=== PATIENT | female | born 1990 | race Caucasian/White ===

== ENCOUNTER 2016-12-10 22:02 | Inpatient (IN) | payer SELFPAY ==
--- NOTE | 2016-12-10 22:19 | EDPHY ---
H & P Time Seen by Provider: 12/10/16 22:12 HPI/ROS: HPI Diabetes, vomiting, urinary complaints, sore throat. 26-year-old female. Type 1 diabetic. Reports that 2 days ago she started feeling chills as well as having some shortness of breath and feeling fatigued that was much more noticeable with any exertion. Today she reports onset of nausea with 3-4 episodes of nonbilious, nonbloody vomiting. No diarrhea. She continues to have chills. She also states that she has had dysuria with suprapubic discomfort and some left lower abdominal discomfort which she describes as crampy and achy and coming on in waves. ROS: Constitutional: No fever, as above. Eyes: No discharge. No changes in vision. ENT: As above. No nasal congestion or rhinorrhea. Respiratory: No cough. No shortness of breath. Cardiac: No chest pain, no palpitations. Gastrointestinal: As above, no diarrhea. Genitourinary: No hematuria. As above. Musculoskeletal: No back pain. No neck pain. No myalgias or arthralgias. Skin: No rashes. Neurological: No headache. No focal weakness or altered sensation. Past medical history: Type 1 diabetes. Social history: Physical Exam: General Appearance: Alert, no distress. This patient is responding to questions appropriately and in full sentences. This patient appears well- hydrated and well-nourished. Eyes: Pupils equal and round no pallor or injection. No lid edema, erythema or injection. ENT, Mouth: Mucous membranes are dry. Pharyngeal erythema present. No edema or swelling. No asymmetry suggestive of abscess. No exudates. Respiratory: There are no retractions, lungs are clear to auscultation with good air movement bilaterally. Cardiovascular: Regular rate and rhythm. No murmur. Gastrointestinal: Abdomen is soft with mild and vague suprapubic and left a lower quadrant tenderness on palpation, no masses, bowel sounds normal. No focal tenderness at McBurney's point. No Ybarra sign. Neurological: Motor sensory function is grossly intact. Cranial nerves are normal. Gait is normal. Skin: Warm and dry, no rashes. Musculoskeletal: Neck is supple and nontender. No cervical or submental submandibular lymphadenopathy. Extremities are symmetrical. All joints range without pain or impingement. Psychiatric: No agitation. No depression. Database: EKG: Imaging: Pelvic ultrasound: Normal. Results were discussed with staff radiologist Dr. Michelle. Procedures: Emergency department course: IV placed. She was placed on a monitor. She was started on IV normal saline with 2 L to be given over the next 1-2 hours. She was initially given 4 mg of IV Zofran, 20 mg of IV Pepcid and 0.25 mg of IV hydromorphone. Vital signs reviewed. She was mildly tachycardic in triage. Blood pressure normal. Temperature 37.1degrees. On my evaluation initially, narrow complex sinus rhythm ventricular rate of 85. 11:14 p.m., patient re-evaluated. Serum bicarbonate is 9. IM gap 26. Blood sugar 91. Sepsis declared at this time based on SIRS criteria +infection. She reports she administered 10 units of regular insulin at 8:00 p.m.. She tells me she eats a paleo diet. Acidosis is probably mixed metabolic. Patient given 40 mEq of oral potassium. IV fluids switched to D5 normal saline for 2 L. She was started on an insulin drip at 5 units/hour a regular insulin. Urinalysis indicates infection. She was given 1 g of IV Rocephin. 11:45 p.m., discussed case with hospitalist. Dr. Quintana accepts this patient for admission. She will see the patient in the emergency department now. Patient's remaining emergency department course under my care uneventful. Patient was admitted to the ICU in stable and improved condition. Differential Diagnosis: The differential diagnosis on this patient includes but is not limited to streptococcal pharyngitis, viral syndrome, influenza, dehydration, left ovarian cyst, starvation ketoacidosis, urinary tract infection, DKA. This represents a partial list of diagnoses considered. These considerations are based on history , physical exam, past history, reassessment and diagnostic testing. Constitutional: Initial Vital Signs Temperature (C) 37.1 C 12/10/16 22:05 Heart Rate 105 H 12/10/16 22:05 Respiratory Rate 22 H 12/10/16 22:05 Blood Pressure 118/80 12/10/16 22:05 O2 Sat (%) 100 12/10/16 22:05 O2 Delivery Mode Room Air Allergies/Adverse Reactions: No Known Allergies Allergy (Unverified 12/10/16 22:25) Home Medications: Medication Instructions Recorded Insulin Lispro [Humalog] 12/10/16 Medical Decision Making - Data Points Laboratory Results: Laboratory Results 12/10/16 22:10 12/10/16 22:10 12/10/16 12/10/16 12/10/16 22:40 22:40 22:20 WBC RBC Hgb Hct MCV MCH MCHC RDW Plt Count MPV Neut % (Auto) Lymph % (Auto) [place] % (Auto) Eos % (Auto) Baso % (Auto) Nucleat RBC Rel Count Absolute Neuts (auto) Absolute Lymphs (auto) Absolute Monos (auto) Absolute Eos (auto) Absolute Basos (auto) Absolute Nucleated RBC Immature Gran % Immature Gran # VBG Lactic Acid Sodium Potassium Chloride Carbon Dioxide Anion Gap BUN Creatinine Estimated GFR Glucose Calcium Phosphorus Magnesium Total Bilirubin Conjugated Bilirubin Unconjugated Bilirubin AST ALT Alkaline Phosphatase Total Protein Albumin Lipase Beta-Hydroxybutyrate Beta HCG, Qual Urine Color YELLOW Urine Appearance HAZY Urine pH 5.0 (5.0-7.5) Ur Specific [place] 1.017 (1.002-1.030) Urine Protein 2+ H (NEGATIVE) Urine Ketones 2+ H (NEGATIVE) Urine Blood NEGATIVE (NEGATIVE) Urine Nitrate NEGATIVE (NEGATIVE) Urine Bilirubin NEGATIVE (NEGATIVE) Urine Urobilinogen NEGATIVE EU EU (0.2-1.0) Ur Leukocyte Esterase 2+ H (NEGATIVE) Urine RBC 5-10 /hpf H /hpf (0-3) Urine WBC 5-10 /hpf H /hpf (0-3) Ur Epithelial Cells TRACE /lpf /lpf (NONE-1+) Granular Casts 15-25 /lpf H /lpf (0-1) Urine Mucus TRACE /lpf /lpf (NONE-1+) Ur Culture Indicated? INDICATED H (NI) Urine Glucose 2+ H (NEGATIVE) Influenza Typ A,B (DFA) NEGATIVE FOR FLU (NEGATIVE) Group A Strep Screen NEGATIVE (NEGATIVE) 12/10/16 12/10/16 12/10/16 22:10 22:10 22:10 WBC 12.65 10^3/uL H 10^3/uL (3.80-9.50) RBC 5.35 10^6/uL H 10^6/uL (4.18-5.33) Hgb 14.6 g/dL g/dL (12.6-16.3) Hct 46.2 % % (38.0-47.0) MCV 86.4 fL fL (81.5-99.8) MCH 27.3 pg L pg (27.9-34.1) MCHC 31.6 g/dL L g/dL (32.4-36.7) RDW 13.8 % % (11.5-15.2) Plt Count 393 10^3/uL 10^3/uL (150-400) MPV 9.6 fL fL (8.7-11.7) Neut % (Auto) 64.4 % % (39.3-74.2) Lymph % (Auto) 25.3 % % (15.0-45.0) [place] % (Auto) 8.6 % % (4.5-13.0) Eos % (Auto) 0.2 % L % (0.6-7.6) Baso % (Auto) 0.7 % % (0.3-1.7) Nucleat RBC Rel Count 0.0 % % (0.0-0.2) Absolute Neuts (auto) 8.15 10^3/uL H 10^3/uL (1.70-6.50) Absolute Lymphs (auto) 3.20 10^3/uL H 10^3/uL (1.00-3.00) Absolute Monos (auto) 1.09 10^3/uL H 10^3/uL (0.30-0.80) Absolute Eos (auto) 0.02 10^3/uL L 10^3/uL (0.03-0.40) Absolute Basos (auto) 0.09 10^3/uL 10^3/uL (0.02-0.10) Absolute Nucleated RBC 0.00 10^3/uL 10^3/uL (0-0.01) Immature Gran % 0.8 % % (0.0-1.1) Immature Gran # 0.10 10^3/uL 10^3/uL (0.00-0.10) VBG Lactic Acid Sodium 143 mEq/L mEq/L (134-144) Potassium 3.8 mEq/L mEq/L (3.5-5.2) Chloride 108 mEq/L mEq/L (97-110) Carbon Dioxide 9 mEq/l L* mEq/l (22-31) Anion Gap 26 mEq/L H mEq/L (8-16) BUN 8 mg/dL mg/dL (7-23) Creatinine 0.7 mg/dL mg/dL (0.6-1.0) Estimated GFR > 60 Glucose 91 mg/dL mg/dL (70-100) Calcium 10.1 mg/dL mg/dL (8.5-10.4) Phosphorus Magnesium Total Bilirubin 0.8 mg/dL mg/dL (0.1-1.4) Conjugated Bilirubin 0.5 mg/dL mg/dL (0.0-0.5) Unconjugated Bilirubin 0.3 mg/dL mg/dL (0.0-1.1) AST 41 IU/L IU/L (14-46) ALT 54 IU/L H IU/L (9-52) Alkaline Phosphatase 125 IU/L IU/L (38-126) Total Protein 8.8 g/dL H g/dL (6.3-8.2) Albumin 5.3 g/dL H g/dL (3.5-5.0) Lipase 59.0 IU/L IU/L (23-300) Beta-Hydroxybutyrate Beta HCG, Qual NEGATIVE Urine Color Urine Appearance Urine pH Ur Specific [place] Urine Protein Urine Ketones Urine Blood Urine Nitrate Urine Bilirubin Urine Urobilinogen Ur Leukocyte Esterase Urine RBC Urine WBC Ur Epithelial Cells Granular Casts Urine Mucus Ur Culture Indicated? Urine Glucose Influenza Typ A,B (DFA) Group A Strep Screen 12/10/16 12/10/16 22:10 22:00 WBC RBC Hgb Hct MCV MCH MCHC RDW Plt Count MPV Neut % (Auto) Lymph % (Auto) [place] % (Auto) Eos % (Auto) Baso % (Auto) Nucleat RBC Rel Count Absolute Neuts (auto) Absolute Lymphs (auto) Absolute Monos (auto) Absolute Eos (auto) Absolute Basos (auto) Absolute Nucleated RBC Immature Gran % Immature Gran # VBG Lactic Acid 2.0 mmol/L mmol/L (0.7-2.1) Sodium Potassium Chloride Carbon Dioxide Anion Gap BUN Creatinine Estimated GFR Glucose Calcium Phosphorus 3.0 mg/dL mg/dL (2.5-4.5) Magnesium 2.3 mg/dL mg/dL (1.6-2.3) Total Bilirubin 0.8 mg/dL mg/dL (0.1-1.4) Conjugated Bilirubin Unconjugated Bilirubin AST ALT Alkaline Phosphatase Total Protein Albumin Lipase Beta-Hydroxybutyrate Pending Beta HCG, Qual Urine Color Urine Appearance Urine pH Ur Specific [place] Urine Protein Urine Ketones Urine Blood Urine Nitrate Urine Bilirubin Urine Urobilinogen Ur Leukocyte Esterase Urine RBC Urine WBC Ur Epithelial Cells Granular Casts Urine Mucus Ur Culture Indicated? Urine Glucose Influenza Typ A,B (DFA) Group A Strep Screen Medications Given: Discontinued Medications Hydromorphone HCl (Dilaudid) 0.25 mg IVP EDNOW ONE Stop: 12/10/16 22:40 Last Admin: 12/10/16 22:49 Dose: 0.25 mg Hydromorphone HCl (Dilaudid) 0.25 mg IVP ONCE ONE Stop: 12/11/16 00:02 Last Admin: 12/11/16 00:03 Dose: 0.25 mg Sodium Chloride (Ns) 1,000 mls @ 0 mls/hr IV ONCE ONE PRN Reason: Wide Open Stop: 12/10/16 22:31 Last Admin: 12/10/16 22:32 Dose: 1,000 mls Sodium Chloride (Ns) 1,000 mls @ 0 mls/hr IV ONCE ONE PRN Reason: Wide Open Stop: 12/10/16 22:31 Last Admin: 12/10/16 22:20 Dose: 1,000 mls Famotidine/Sodium Chloride (Pepcid 20 Mg (Premix)) 50 mls @ 200 mls/hr IV EDNOW ONE Stop: 12/10/16 22:53 Last Admin: 12/10/16 22:50 Dose: 50 mls Ceftriaxone Sodium/Dextrose (Rocephin 1 Gm (Premix)) 50 mls @ 100 mls/hr IV EDNOW ONE PRN Reason: Protocol Stop: 12/10/16 23:42 Last Admin: 12/10/16 23:15 Dose: 50 mls Dextrose/Sodium Chloride (D5w Ns) 2,000 mls @ 0 mls/hr IV BOLUS ONE PRN Reason: Wide Open Stop: 12/10/16 23:15 Last Admin: 12/10/16 23:17 Dose: 2,000 mls Ondansetron HCl (Zofran) 4 mg IVP EDNOW ONE Stop: 12/10/16 22:31 Last Admin: 12/10/16 22:43 Dose: Not Given Potassium Chloride (Klor-Con) 40 meq PO EDNOW ONE Stop: 12/10/16 23:11 Last Admin: 12/10/16 23:10 Dose: 40 meq Departure - Departure Disposition: [facility] Inpatient Acute Clinical Impression: Vomiting, History of diabetes mellitus, type I, Diabetic ketoacidosis, Sepsis, Urinary tract infection, Dehydration
[2016-12-10] MEDS ORDERED: NS 1,000 ML IV ONE ×2 (22:30)
[2016-12-10] MEDS ORDERED: ONDANSETRON 4 MG/2 ML VIAL IVP ONE (22:30)
[2016-12-10] MEDS ORDERED: HYDROmorphONE/DILAUDID 1 MG/ML SYR IVP ONE (22:39)
[2016-12-10] MEDS ORDERED: FAMOTIDINE 20 MG/NACL 50 ML IV ONE (22:39)
[2016-12-10 22:40] LABS: % IMMATURE GRANULYOCYTES 0.8 % (0.0-1.1); ADD DIFF? NO; ADD MORPH? NO; ADD SCAN? NO; ATYPICAL LYMPHOCYTE FLAG 0 (0-99); FRAGMENT RBC FLAG 0 (0-99); HEMATOCRIT 46.2 % (38.0-47.0); HEMOGLOBIN 14.6 g/dL (12.6-16.3); LEFT SHIFT FLG 10 (0-99); LIPEMIA HEMOLYSIS FLAG 80 (0-99); MEAN CELL HEMOGLOBIN 27.3 pg (27.9-34.1); MEAN CELL HEMOGLOBIN CONCENTR. 31.6 g/dL (32.4-36.7); MEAN CELL VOLUME 86.4 fL (81.5-99.8); MEAN PLATELET VOLUME 9.6 fL (8.7-11.7); PLATELET CLUMPS FLAG 0 (0-99); PLATELET COUNT 393 10^3/uL (150-400); RED BLOOD CELL COUNT 5.35 10^6/uL (4.18-5.33); RED CELL DISTRIBUTION WIDTH 13.8 % (11.5-15.2)
[2016-12-10 22:51] LABS: ALANINE AMINOTRANSFERASE 54 IU/L (9-52); ALBUMIN 5.3 g/dL (3.5-5.0); ALKALINE PHOSPHATASE 125 IU/L (38-126); ANION GAP 26 mEq/L (8-16); ASPARTATE AMINOTRANSFERASE 41 IU/L (14-46); BILIRUBIN,TOTAL 0.8 mg/dL (0.1-1.4); BILIRUBIN-CONJUGATED 0.5 mg/dL (0.0-0.5); BILIRUBIN-UNCONJUGATED 0.3 mg/dL (0.0-1.1); CALCIUM 10.1 mg/dL (8.5-10.4); CHLORIDE 108 mEq/L (97-110); CREATININE 0.7 mg/dL (0.6-1.0); GLOMERULAR FILTRATION RATE > 60; GLUCOSE 91 mg/dL (70-100); POTASSIUM 3.8 mEq/L (3.5-5.2); SODIUM 143 mEq/L (134-144); TOTAL PROTEIN 8.8 g/dL (6.3-8.2)
[2016-12-10 22:55] LABS: CARBON DIOXIDE 9 mEq/l (22-31)
[2016-12-10 22:56] LABS: COLOR YELLOW; LEUKOCYTE ESTERASE,URINE 2+ (NEGATIVE); NITRITE,URINE NEGATIVE (NEGATIVE)
[2016-12-10] MEDS ORDERED: INSULIN REGULAR HUMAN 100 UNIT, COSIGN. REQUIRED 1 EA in NS 100 ML IV ONE (23:00)
[2016-12-10 23:09] LABS: GRANULAR CASTS 15-25 /lpf (0-1); MUCUS TRACE /lpf (NONE-1+)
[2016-12-10] MEDS ORDERED: POTASSIUM CL 20 MEQ TAB PO ONE (23:10)
[2016-12-10] MEDS ORDERED: D5W NS IV ONE (23:14)
[2016-12-10] MEDS ORDERED: HYDROmorphONE/DILAUDID 1 MG/ML SYR ONE (23:49)
[2016-12-10 23:54] LABS: BILIRUBIN,TOTAL 0.8 mg/dL (0.1-1.4); MAGNESIUM 2.3 mg/dL (1.6-2.3)
[2016-12-11] MEDS ORDERED: HYDROmorphONE/DILAUDID 1 MG/ML SYR IVP ONE (00:01)
[2016-12-11] MEDS ORDERED: D5W NS 1,000 ML IV SCH ×2 (00:30→04:45)
[2016-12-11] MEDS ORDERED: ONDANSETRON 4 MG/2 ML VIAL IVP PRN (00:31)
[2016-12-11] MEDS ORDERED: OXYCODONE/APAP 5/325 TAB PO PRN (00:31)
[2016-12-11] MEDS ORDERED: ONDANSETRON DISINTEGRATING 4 MG TAB PO PRN (00:31)
[2016-12-11] MEDS ORDERED: ACETAMINOPHEN 325 MG TAB PO PRN (00:31)
[2016-12-11] MEDS ORDERED: NS 1,000 ML IV SCH (01:15)
--- NOTE | 2016-12-11 01:30 | GHP ---
DATE OF ADMISSION: 12/10/2016 CHIEF COMPLAINT: Fevers and chills. HISTORY OF PRESENT ILLNESS: A 26-year-old female with known type 1 diabetes who uses Humalog insuli n in the outpatient setting, who presents with 1 week of dysuria, followed by 3 days of subjective f erasmo, chills, nausea, difficulty tolerating p.o. fluids, and fatigue. The patient reports having r ecently moved from [place] without well established medical care or support systems. Reports iris t she was experiencing dysuria for approximately a week prior to her presentation, having not ever e xperienced urinary tract infection before, did not present for assessment. The patient reports that then in the last 72 hours, she has developed fevers and chills, underlying nausea, near-complete in ability to tolerate either food or fluids, but has continued to use her insulin as needed. The ranjeet ent reports 1 preceding episode of DKA that was secondary to medication compliance. Reports some so re throat and shortness of breath. Denies cough. Is experiencing some headache in the emergency de partment. Denies vision changes. Denies diarrhea. Denies lower extremity edema or any new rashes. Patient noted hyperglycemia in the outpatient setting and took 10 units of Humalog insulin prior to presenting to the emergency department. PAST MEDICAL HISTORY: Type 1 diabetes. SOCIAL HISTORY: Negative for illicit drugs. Denies tobacco and alcohol use. Reports she intends t o permanently move from [place] to [place] and establish medical care here. ADVANCED DIRECTIVES: She is full cor, full tube. REVIEW OF SYSTEMS: A 10-point review of systems is negative with the exception of that reported in the HPI. PHYSICAL EXAMINATION: VITAL SIGNS: Blood pressure 109/68, heart rate 105, respiratory rate 22, sat urating 100% on room air, 37.1. GENERAL: This is a thin-appearing young female who looks uncomfort able. HEENT: Notable for very dry mucous membranes. Eyes: Negative for any icterus. CARDIAC: T he patient is tachycardic. PULMONARY: Good respiratory effort. Clear to auscultation bilaterally. No rales, rhonchi, or wheezing. GASTROINTESTINAL: The patient is thin, has positive bowel sounds . ABDOMEN: Tender to palpation in the left lower quadrant, but is soft. The patient has no reboun d or guarding. MUSCULOSKELETAL: Negative for any lower extremity edema. SKIN: Negative for any r ashes. NEUROLOGIC: She is alert and oriented x3. PSYCHIATRIC: She is pleasant and cooperative on interview and examination. DATA: White count is 12.6, hematocrit 46.2, platelets of 393. Bicarb of 9. Anion gap of 26. Crea tinine is 0.7. Glucose of 91. Urinalysis shows 5-10 white blood cells, 15-25 granular casts, 2+ glucose, 2+ ketones. She is negat mil[place] for the flu. Negative for group A strep screening. The patient is refusing chest x-ray. Telem etry, which I personally reviewed and interpreted, shows sinus tachycardia. ASSESSMENT AND PLAN: 1. This is a 26-year-old female, presenting with diabetic ketoacidosis. The patient's admission bl ood glucose is low. I suspect this is likely related to the insulin she self-administered prior to presentation. Based on her history, I suspect that her trigger was a smoldering urinary tract infec tion which led to hyperglycemia and ultimately diabetic ketoacidosis. She has anion gap and acidosi s with ketones in the urine consistent. Will aggressively fluid resuscitate and place carefully on diabetic ketoacidosis protocol on insulin drip monitoring for hypoglycemia. Will carefully follow e lectrolytes overnight. 2. Suspected urinary tract infection based on symptoms, leukocytosis, and abnormal urinalysis. Yoshi curtis empirically treat with ceftriaxone, send urine for culture. Blood cultures have been obtained in the emergency department. 3. Anion gap metabolic acidosis, presumed secondary to diabetic ketoacidosis. Beta hydroxybutyrate is pending. Will aggressively fluid resuscitate and treat with insulin. 4. Leukocytosis. The patient's 2 localizing symptoms are dysuria and shortness of breath. Her shanti g exam is entirely normal. Patient is refusing a chest x-ray. My suspicion for pneumonia is low. Again, will treat empirically for urinary tract infection and send the urine for culture. Can follo w and contour antibiotics accordingly. 5. Type 1 diabetes. Patient uses Humalog alone. Would benefit from outpatient endocrinology. Yoshi acevedo transition off the diabetic ketoacidosis protocol onto a long-acting insulin to assist for improve d glycemic control. Will send a hemoglobin A1c. 6. Prophylaxis with Lovenox. 7. Diet: Diabetic. 8. Disposition: I expect greater than 2 midnights as the patient is presenting with severe acidosi s and diabetic ketoacidosis. 9. Discussed the case with the emergency room physician. Patient will be triaged to the medical-kimble rgical floor for care. /[id number]/MODL
[2016-12-11 01:36] LABS: B-HYDROXYBUTYRATE 6.92 mmol/L (0.02-0.27)
[2016-12-11 01:55] LABS: PHENCYCLIDINE URINE BCH < 6 ng/ml (NEGATIVE); PHENCYCLIDINE URINE BCH NEGATIVE (NEGATIVE); TETRAHYDROCANNABINOL URINE < 5 ng/mL (NEGATIVE); TETRAHYDROCANNABINOL URINE NEGATIVE (NEGATIVE)
[2016-12-11] MEDS ORDERED: INSULIN REGULAR HUMAN 100 UNIT in NS 100 ML IV SCH ×2 (02:00→04:00)
[2016-12-11 02:23] LABS: ANION GAP 13 mEq/L (8-16); CALCIUM 7.5 mg/dL (8.5-10.4); CARBON DIOXIDE 15 mEq/l (22-31); CHLORIDE 114 mEq/L (97-110); CREATININE 0.5 mg/dL (0.6-1.0); GLOMERULAR FILTRATION RATE > 60; GLUCOSE 244 mg/dL (70-100); MAGNESIUM 1.7 mg/dL (1.6-2.3); SODIUM 142 mEq/L (134-144)
[2016-12-11] MEDS ORDERED: PROTOCOL POTASSIUM 1 DOSE MISC PRN ×2 (02:57)
[2016-12-11 03:25] LABS: HEMOGLOBIN A1C 11.8 % (4.0-6.0)
[2016-12-11] MEDS: POTASSIUM Cl (KCl) 100 ML IV SCH ×4 (03:42→07:53)
[2016-12-11] MEDS ORDERED: D50W 25 GM/50 ML SYR IVP PRN ×2 (04:00→09:06)
[2016-12-11] MEDS ORDERED: INSULIN REGULAR HUMAN 100 UNIT/ML IVP PRN (04:00)
[2016-12-11] MEDS: HYDROmorphONE/DILAUDID 1 MG/ML SYR IVP PRN ×2 (06:17→08:49)
[2016-12-11 06:47] LABS: ATYPICAL LYMPHOCYTE FLAG 10 (0-99); FRAGMENT RBC FLAG 0 (0-99); LEFT SHIFT FLG 0 (0-99); LIPEMIA HEMOLYSIS FLAG 80 (0-99); PLATELET CLUMPS FLAG 10 (0-99)
[2016-12-11 07:06] LABS: ALANINE AMINOTRANSFERASE 43 IU/L (9-52); ALBUMIN 3.2 g/dL (3.5-5.0); ALKALINE PHOSPHATASE 77 IU/L (38-126); ANION GAP 10 mEq/L (8-16); ASPARTATE AMINOTRANSFERASE 29 IU/L (14-46); BILIRUBIN,TOTAL 0.8 mg/dL (0.1-1.4); CALCIUM 7.6 mg/dL (8.5-10.4); CARBON DIOXIDE 16 mEq/l (22-31); CHLORIDE 112 mEq/L (97-110); CREATININE 0.5 mg/dL (0.6-1.0); GLOMERULAR FILTRATION RATE > 60; GLUCOSE 168 mg/dL (70-100); MAGNESIUM 1.7 mg/dL (1.6-2.3); SODIUM 138 mEq/L (134-144); TOTAL PROTEIN 5.7 g/dL (6.3-8.2)
[2016-12-11 08:42] LABS: ALANINE AMINOTRANSFERASE 41 IU/L (9-52); ALBUMIN 3.2 g/dL (3.5-5.0); ALKALINE PHOSPHATASE 82 IU/L (38-126); ANION GAP 12 mEq/L (8-16); ASPARTATE AMINOTRANSFERASE 28 IU/L (14-46); BILIRUBIN,TOTAL 0.7 mg/dL (0.1-1.4); CALCIUM 8.2 mg/dL (8.5-10.4); CARBON DIOXIDE 17 mEq/l (22-31); CHLORIDE 109 mEq/L (97-110); CREATININE 0.4 mg/dL (0.6-1.0); GLOMERULAR FILTRATION RATE > 60; GLUCOSE 202 mg/dL (70-100); MAGNESIUM 1.7 mg/dL (1.6-2.3); POTASSIUM 3.9 mEq/L (3.5-5.2); SODIUM 138 mEq/L (134-144); TOTAL PROTEIN 5.6 g/dL (6.3-8.2)
[2016-12-11] MEDS: ENOXAPARIN 40 MG/0.4 ML SYR SC SCH ×2 (08:49→08:54)
[2016-12-11 09:08] LABS: % IMMATURE GRANULYOCYTES 0.7 % (0.0-1.1); ABSOLUTE IMMATURE GRANULOCYTES 0.08 10^3/uL (0.00-0.10); ADD DIFF? NO; ADD MORPH? NO; ADD SCAN? NO; ATYPICAL LYMPHOCYTE FLAG 0 (0-99); FRAGMENT RBC FLAG 10 (0-99); HEMOGLOBIN 11.3 g/dL (12.6-16.3); LEFT SHIFT FLG 10 (0-99); LIPEMIA HEMOLYSIS FLAG 80 (0-99); MEAN CELL HEMOGLOBIN 28.2 pg (27.9-34.1); MEAN CELL HEMOGLOBIN CONCENTR. 33.2 g/dL (32.4-36.7); MEAN CELL VOLUME 84.8 fL (81.5-99.8); MEAN PLATELET VOLUME 10.3 fL (8.7-11.7); PLATELET CLUMPS FLAG 0 (0-99); PLATELET COUNT 314 10^3/uL (150-400); RED BLOOD CELL COUNT 4.01 10^6/uL (4.18-5.33); RED CELL DISTRIBUTION WIDTH 13.9 % (11.5-15.2)
[2016-12-11] MEDS: INSULIN LISPRO 100 UNIT/ML SC SCH ×2 (09:35→11:33)
[2016-12-11] MEDS ORDERED: MAGNESIUM SULF 2 GM/WATER 50 ML IV ONE (10:05)
[2016-12-11] MEDS ORDERED: INSULIN LISPRO 100 UNIT/ML SC SCH (12:00)
[2016-12-11 12:07] VITALS: BP 95/56; PULSE 90; RESP 18; TEMP 98.2; O2SAT 98
[2016-12-11 12:21] LABS: POTASSIUM 4.3 mEq/L (3.5-5.2)
--- NOTE | 2016-12-11 17:42 | GDS ---
DISCHARGE DIAGNOSES: 1. Diabetic ketoacidosis. 2. Urinary tract infection. 3. Poorly controlled type 1 diabetes. HISTORY: This is a 26-year-old female, who just moved from [place]. She presented with DKA. HOSPITAL COURSE: The patient was placed on insulin drip. Her gap closed and acidosis resolved. Th e following day, she was eating and her blood sugars were reasonable, and she is requesting to be di scharged home. Patient was diagnosed with UTI, which is probably the trigger. She received 1 dose of IV ceftriaxon e. We did try to get her to take at least another dose of ceftriaxone and to take oral antibiotics, but she is refusing. Gave her a prescription of Ceftin just in case she would take it. The patient has also not been using long-acting insulin, but she is amenable to restarting that as s he has to wake herself up multiple times as she is giving herself lispro every 2 hours to try to sta y out of DKA. TIME SPENT: Greater than 30 minutes were spent in discharge. /[id number]/MODL
== END 2016-12-11 12:52 | disposition home or self-care (01) | DRG 638 ==
LOC: F2N 12-11 00:18
PROVIDERS: ADMIT Hospitalist; ATTEND Hospitalist
DX: E10.10 Type 1 diabetes mellitus with ketoacidosis without coma (principal); N39.0 Urinary tract infection, site not specified; Z79.4 Long term (current) use of insulin
CPT/HCPCS: 80307; 82947-QW; 96365; G0480; J0696; J1170; J1650; J1815; J2405